=== PATIENT | female | born 1990 | race Caucasian/White ===

== ENCOUNTER → 2017-01-13 | Outpatient (CLI) | payer BC ==
[~2017-01-13] MED LIST: CLR10; MTR600X PO; OXYC-57 PO; PEDICHW50 PO
--- NOTE | 2017-01-13 08:03 | DIAGNOSTIC IMAGING REPORT ---
ABDOMEN AND PELVIS CT WITHOUT CONTRAST CT DOSE: 1436.32 mGy.cm HISTORY: Right flank pain. HEMATURIA TECHNIQUE: Multiaxial CT images of the abdomen and pelvis were performed without the use of intravenous and oral contrast according to the standard department stone protocol. COMPARISON STUDY: None. FINDINGS: 2 mm subpleural nodule within the right lower lobe on image 2. Linear density within the right middle lobe favors atelectasis or scarring. No fractures within the visualized osseous structures. The unenhanced liver, spleen, gallbladder, pancreas, adrenal glands, and kidneys are unremarkable. No renal stones or hydronephrosis. No retroperitoneal lymphadenopathy. Normal bladder. The intrauterine device is seen in the endometrial cavity. A 3 cm left ovarian cyst. Suboptimal evaluation for bowel pathology due to the lack of intravenous and oral contrast. However, there is no definite bowel wall thickening or obstruction. Normal appendix. IMPRESSION: 1. No renal stones or hydronephrosis. 2. No definite bowel wall thickening or obstruction. 3. Normal appendix. 4. A 3 cm left ovarian cyst. 5. A 2 mm subpleural nodule within the right lower lobe. This is of doubtful significance given the patient's age. Electronically signed by: Wale Cho M.D. 01/13/2017 8:01 AM Dictated Date/Time: 01/13/2017 7:55 AM
== END | disposition home or self-care (01) ==
LOC: C.CTS 07:39
PROVIDERS: ATTEND Internal Medicine
DX: R31.9 Hematuria, unspecified (principal); N83.202 Unspecified ovarian cyst, left side; R91.1 Solitary pulmonary nodule

== ENCOUNTER → 2017-08-03 | Outpatient (CLI) | payer OTHER ==
[2017-08-03 12:37] LABS: C-REACTIVE PROTEIN 0.8 mg/dl (0-0.29)
== END | disposition home or self-care (01) ==
LOC: C.LAB 11:34
PROVIDERS: ATTEND Nurse Practitioner Family
DX: K52.9 Noninfective gastroenteritis and colitis, unspecified (principal)

== ENCOUNTER → 2017-08-07 | Outpatient (CLI) | payer OTHER ==
[~2017-08-07] MED LIST changes: +SINCALIDE IV ONE; +SODIUM CHLORIDE 0.9% IV ONE
--- NOTE | 2017-08-07 10:27 | DIAGNOSTIC IMAGING REPORT ---
NUCLEAR MEDICINE HEPATOBILIARY SCAN WITH EJECTION FRACTION HISTORY: RUQ ABD PAIN,CHRONIC DIAHRREA COMPARISON: Abdomen and pelvis CT 01/13/2017. TECHNIQUE: Immediately following the intravenous administration of 5.5 mCi Tc-99m Choletec, dynamic anterior abdominal imaging pre/post 2.9 mcg of Kinevac was performed. FINDINGS: Uniform hepatic tracer accumulation is shown. Prompt intrahepatic biliary excretion is seen. The gallbladder, common bile duct, and small bowel are all visualized by 35 minutes. This appearance represents the normal sequence of biliary excretion. The gall bladder ejection fraction following administration of Kinevac was 88% (normal >35%). IMPRESSION: 1. No evidence for cystic duct obstruction. 2. Gallbladder ejection fraction calculated to be 88 %. Electronically signed by: Wale Cho M.D. 08/07/2017 10:26 AM Dictated Date/Time: 08/07/2017 10:25 AM
== END | disposition home or self-care (01) ==
LOC: C.NUCL 07:47
PROVIDERS: ATTEND Nurse Practitioner Family
DX: R10.11 Right upper quadrant pain (principal); K52.9 Noninfective gastroenteritis and colitis, unspecified

== ENCOUNTER 2017-10-11 15:51 | Emergency (ER) | payer OTHER ==
[~2017-10-11] VITALS: Ht 172.7 cm; Wt 142.7 kg
[~2017-10-11 15:51] MED LIST changes: -CLR10; +LEVO1IUD2; -MTR600X PO; -OXYC-57 PO; -PEDICHW50 PO; -SINCALIDE IV ONE; -SODIUM CHLORIDE 0.9% IV ONE; +TPRSR/50 PO
[2017-10-11] MEDS ORDERED: TRMCR130WC TOP (15:52)
[2017-10-11] MEDS ORDERED: SUMA50TA15 PO (15:52)
[2017-10-11 16:18] VITALS: TEMP 36.9; Ht 172.7 cm; Wt 142.7 kg
--- NOTE | 2017-10-11 16:44 | EMERGENCY ROOM VISIT NOTE ---
History First contact with patient: 16:23 Chief Complaint: LEG PAIN,LEG INJURY Stated Complaint: BLOOD CLOTS IN LEGS- [facility] REFERRED History of Present Illness The patient is a 26 year old female who presents to the Emergency Room with complaints of bilateral lower extremity swelling for the last several days. The patient also reports some numbness and tingling into her legs. She denies any back pain. No weakness. She reports getting winded yesterday when she was walking to her car. She denies any chest pain. No history of DVT. She did recently take a long car trip to [place]. The patient also smokes approximately one half pack cigarettes per day. She uses the Mirena for control. She denies any fever or chills. Review of Systems 10 system review performed and negative unless noted in HPI or below Past Medical/Surgical History Hypertension History of bronchitis Social History Smoking Status: Current Every Day Smoker Marital Status: Current/Historical Medications Scheduled Loratadine (Claritin), 10 MG PO DAILY Metoprolol Succinate (Metoprolol Succinate ER), 50 MG PO HS Scheduled PRN Sumatriptan Succinate (Imitrex), 50 MG PO UD PRN for Migraine Triamcinolone Acet (Aristocort 0.1%), 1 APPLN TOP UD PRN for Dermatitis Physical Exam Vital Signs Date Time Temp Pulse Resp B/P (MAP) Pulse Ox O2 Delivery O2 Flow Rate FiO2 10/11/17 18:41 75 18 155/98 97 Room Air 10/11/17 16:18 36.9 59 18 194/97 98 Room Air Physical Exam VITALS: Vitals are noted on the nurse's note and reviewed by myself. Vital signs stable. GENERAL: 26-year-old female, in no acute distress, nondiaphoretic, well- developed well-nourished. SKIN: Slight erythema noted to the shins bilaterally. No warmth appreciated. The skin is intact. HEAD: Normocephalic atraumatic. HEART: Regular rate and rhythm without murmurs gallops or rubs. LUNGS: Clear to auscultation bilaterally without wheezes, rales or rhonchi. No accessory muscle use. ABDOMEN: Positive bowel sounds x 4.Soft, nontender, without organomegaly. No guarding or rebound tenderness. MUSCULOSKELETAL: No edema in the lower extremities bilaterally. Mild erythema as noted above. Slight tenderness over the lateral aspect of the left calf. DP pulse +2. Capillary refills less than 2 seconds. Strength 5/5 throughout. NEURO: Patient was alert and oriented to person place and time. Normal sensation to touch. No focal neurological deficits. Medical Decision & Procedures ER Provider Diagnostic Interpretation: Lower extremity ultrasound IMPRESSION: No DVT within the right or left lower extremity. Electronically signed by: Wale Cho M.D. 10/11/2017 5:59 PM Dictated Date/Time: 10/11/2017 5:58 PM Laboratory Results 10/11/17 17:10 Red Blood Count 4.80, Mean Corpuscular Volume 89.8, Mean Corpuscular Hemoglobin 31.0, Mean Corpuscular Hemoglobin Concent 34.6, Mean Platelet Volume 11.0, Neutrophils (%) (Auto) 58.9, Lymphocytes (%) (Auto) 32.6, Monocytes (%) (Auto) 5.0, Eosinophils (%) (Auto) 3.1, Basophils (%) (Auto) 0.2, Neutrophils # (Auto) 5.20, Lymphocytes # (Auto) 2.88, Monocytes # (Auto) 0.44, Eosinophils # (Auto) 0.27, Basophils # (Auto) 0.02 10/11/17 17:10 Test 10/11/17 17:10 White Blood Count 8.83 K/uL (4.8-10.8) Red Blood Count 4.80 M/uL (4.2-5.4) Hemoglobin 14.9 g/dL (12.0-16.0) Hematocrit 43.1 % (37-47) Mean Corpuscular Volume 89.8 fL (80-100) Mean Corpuscular Hemoglobin 31.0 pg (25-34) Mean Corpuscular Hemoglobin Concent 34.6 g/dl (32-36) Platelet Count 185 K/uL (130-400) Mean Platelet Volume 11.0 fL (7.4-10.4) Neutrophils (%) (Auto) 58.9 % Lymphocytes (%) (Auto) 32.6 % Monocytes (%) (Auto) 5.0 % Eosinophils (%) (Auto) 3.1 % Basophils (%) (Auto) 0.2 % Neutrophils # (Auto) 5.20 K/uL (1.4-6.5) Lymphocytes # (Auto) 2.88 K/uL (1.2-3.4) Monocytes # (Auto) 0.44 K/uL (0.11-0.59) Eosinophils # (Auto) 0.27 K/uL (0-0.5) Basophils # (Auto) 0.02 K/uL (0-0.2) RDW Standard Deviation 44.5 fL (36.4-46.3) RDW Coefficient of Variation 13.5 % (11.5-14.5) Immature Granulocyte % (Auto) 0.2 % Immature Granulocyte # (Auto) 0.02 K/uL (0.00-0.02) Prothrombin Time 10.0 SECONDS (9.0-12.0) Prothromb Time International Ratio 1.0 (0.9-1.1) Activated Partial Thromboplast Time 29.4 SECONDS (21.0-31.0) Partial Thromboplastin Ratio 1.1 Anion Gap 6.0 mmol/L (3-11) Est Creatinine Clear Calc Drug Dose 159.1 ml/min Estimated GFR () 117.1 Estimated GFR (Non- 101.0 BUN/Creatinine Ratio 12.8 (10-20) Calcium Level 9.0 mg/dl (8.5-10.1) Total Bilirubin 0.3 mg/dl (0.2-1) Direct Bilirubin < 0.1 mg/dl (0-0.2) Aspartate Amino Transf (AST/SGOT) 14 U/L (15-37) Alanine Aminotransferase (ALT/SGPT) 17 U/L (12-78) Alkaline Phosphatase 84 U/L (45-117) Total Protein 7.4 gm/dl (6.4-8.2) Albumin 3.4 gm/dl (3.4-5.0) ED Course Patient was seen and examined Vital signs including blood pressure were reviewed medications list was verified with patient Labs were obtained, and a saline lock was established The patient declined pain medication Imaging was performed and reviewed Upon reassessment, the patient was resting comfortably in bed. We thoroughly discussed her results. She voiced understanding. I reviewed discharge instructions the patient. They voiced understanding and had no further questions. Medical Decision Differential diagnosis: DVT, fluid retention, renal failure, liver failure, cellulitis This patient is a 26-year-old female presents to emergency department complaining of swelling in her lower extremities. There was high risk of DVT given her history of smoking, contraception and recent travel. An ultrasound was performed. No DVTs were noted in the lower extremities bilaterally. No signs of renal or hepatic insufficiency. This is quite possibly dependent edema. She does not have any signs of infection. There is no leukocytosis. She is nontoxic in appearance. I believe she is stable to be discharged home. She was encouraged to elevate her legs above her heart and rest for this evening. She will also follow up closely with her primary care physician, and agrees to return here with any worsening symptoms. This chart was completed in part utilizing [employer] Speech Voice Recognition software. Attempts were made to minimize the grammatical errors, random word insertions, pronoun errors and incomplete sentences. Any formal questions or concerns about the content, text or information contained within the body of this dictation should be directly addressed to the provider for clarification. Medication Reconcilliation Current Medication List: was personally reviewed by me Blood Pressure Screening Patient's blood pressure: Elevated blood pressure Blood pressure disposition: Referred to PCP Impression Primary Impression: Leg edema Departure Information Dispostion Home / Self-Care Condition GOOD Referrals Karolina Garza PA-C (PCP) Patient Instructions My [facility] Additional Instructions You were evaluated in the emergency department for leg swelling. There were no signs of blood clot on the ultrasound. Please elevate your legs above your heart for this evening. Get plenty of rest. Please follow-up with your primary care physician as scheduled tomorrow morning Of note, your blood pressure was elevated in the emergency department. Please have this rechecked tomorrow also. Please do not hesitate to return to the emergency department with any new, worsening or concerning symptoms; especially, fever, increased swelling, chest pain or difficulty breathing It was a pleasure participating in your care Work Instructions Return To Work: 1 day
[2017-10-11 17:17] LABS: BASO % 0.2 %; BASO ABS # 0.02 K/uL (0-0.2); EOS % 3.1 %; EOS ABS # 0.27 K/uL (0-0.5); HEMATOCRIT 43.1 % (37-47); HEMOGLOBIN 14.9 g/dL (12.0-16.0); IG# 0.02 K/uL (0.00-0.02); LYMPH % 32.6 %; LYMPH ABS # 2.88 K/uL (1.2-3.4); MEAN CELL VOLUME 89.8 fL (80-100); MEAN CORPUSCULAR HGB CONC 34.6 g/dl (32-36); MONO ABS # 0.44 K/uL (0.11-0.59); NEUT % 58.9 %; PLATELET COUNT 185 K/uL (130-400); RED CELL DISTRIBUTION WIDTH CV 13.5 % (11.5-14.5); RED CELL DISTRIBUTION WIDTH SD 44.5 fL (36.4-46.3); WHITE BLOOD COUNT 8.83 K/uL (4.8-10.8)
[2017-10-11 17:34] LABS: BLOOD UREA NITROGEN 10 mg/dl (7-18); CARBON DIOXIDE 26 mmol/L (21-32); GLUCOSE 107 mg/dl (70-99); SODIUM 139 mmol/L (136-145)
[2017-10-11 17:38] LABS: ALBUMIN 3.4 gm/dl (3.4-5.0); ALKALINE PHOSPHATASE 84 U/L (45-117); ALT/SGPT 17 U/L (12-78); AST/SGOT 14 U/L (15-37); TOTAL PROTEIN 7.4 gm/dl (6.4-8.2)
[2017-10-11 17:43] LABS: PTT PATIENT 29.4 SECONDS (21.0-31.0)
--- NOTE | 2017-10-11 18:00 | DIAGNOSTIC IMAGING REPORT ---
BILATERAL LOWER EXTREMITY VENOUS DOPPLER HISTORY: bilateral leg edema high risk for DVT COMPARISON STUDY: None. FINDINGS: There is normal compressibility, flow, and augmentation within the bilateral lower extremity deep venous systems. IMPRESSION: No DVT within the right or left lower extremity. Electronically signed by: Wale Cho M.D. 10/11/2017 5:59 PM Dictated Date/Time: 10/11/2017 5:58 PM
[2017-10-11 18:41] VITALS: BP 155/98; PULSE 75; O2SAT 97
[2017-10-11] MEDS ORDERED: CLR10 PO (22:28)
== END 2017-10-11 18:57 | disposition home or self-care (01) ==
LOC: C.EDB 15:52 → C.EDD 18:57
DX: R60.0 Localized edema (principal); I10 Essential (primary) hypertension; F17.210 Nicotine dependence, cigarettes, uncomplicated; Z79.899 Other long term (current) drug therapy

== ENCOUNTER 2017-11-03 08:19 | Day surgery (SDC) | payer OTHER ==
[2017-09-28 15:25] VITALS: Ht 175.3 cm; Wt 140.0 kg
[~2017-11-03] VITALS: Ht 175.3 cm; Wt 140.0 kg
[~2017-11-03 08:19] MED LIST changes: +CLR10 PO; +LACTATED RINGER'S 1000ML 1,000 ML IV SCH; -LEVO1IUD2; +SUMA50TA15 PO; +TRMCR130WC TOP
[2017-11-03 08:50] VITALS: BP 162/90; PULSE 76; TEMP 37.1; O2SAT 96
[2017-11-03] MEDS ORDERED: FENTANYL CITRATE INJ 50 MCG/1 ML 2 ML VIAL ONE (09:37)
[2017-11-03] MEDS ORDERED: MIDAZOLAM HCL 1 MG/ML 2ML VIAL ONE (09:37)
--- NOTE | 2017-11-03 10:11 | Endo History and Physical ---
History & Physical Date of Service: Nov 03, 2017. Chief Complaint: Abdominal pain / difficulty swallowing Referring Physician: Ms. Olu vang History of Present Illness Patient referred for an Upper endoscopy and EUS to evaluate a history abdominal pain and intermitant difficulty with swallowing. Past Surgical History Hx Cardiac Surgery: No Hx Abdominal Surgery: Yes ( ) Hx Post-Op Nausea and Vomiting: No (NOT WITH , PT NOT SURE ABOUT OTHER TIMES ) Hx Cancer Surgery: No Hx Thoracic Surgery: No Hx Orthopedic: No Hx Urinary Tract Surgery: No Social History Smoking Status: Current Every Day Smoker Hx Substance Use: No Hx Alcohol Use: No Allergies Coded Allergies: Penicillins (Verified Allergy, Intermediate, HIVES, 11/03/17) Unclassified Drugs (Verified Allergy, Unknown, ENVIRONMENTAL ALLERGIES & METAL ALLERGY (SEE NOTES BELOW), 11/03/17) ITCHING IS ONLY REACTION (ENVIRONMENTAL) METAL ALLERGY (PT NOT SURE WHAT METALS SHE REACTS TO - REACTION IS CONTACT DERMATITIS, PT WAS SEEN BY AN ELECTRIC POWER MACHINE OPERATOR WHO REPORTED CONTACT DERMATITIS THE REACTION BUT ELECTRIC POWER MACHINE OPERATOR WOULD NOT DO FURTHER TESTING PER PT REPORT) Dust (Verified Adverse Reaction, Mild, rash, 11/03/17) Ondansetron (Verified Adverse Reaction, Unknown, SEVERLY CONSTIPATED, 11/03) Current Medications Reported Home Medications Medications Dose Route/Sig Max Daily Dose Days Date Category Dose Instructions Aristocort 0.1% (Triamcinolone Acet) 90 Appln/30 Gm Cr 1 Appln TOP UD PRN 09/28/17 Reported APPLY DIRECTED TO AFFECTED AREA(S) Imitrex (Sumatriptan Succinate) 50 Mg Tab 50 Mg PO UD PRN 09/28/17 Reported Metoprolol Succinate ER (Metoprolol Succinate) 50 Mg Tabcr 50 Mg PO HS 09/28/17 Reported Claritin (Loratadine) 10 Mg Tab 10 Mg PO DAILY 07/14/06 Reported Vital Signs Weight (Kilograms): 140.00 Height (Feet): 5 Height (Inches): 9 Date Time Temp Pulse Resp B/P (MAP) Pulse Ox O2 Delivery O2 Flow Rate FiO2 11/03/17 08:50 37.1 76 20 162/90 (114) 96 Room Air Physical Exam General Appearance: no apparent distress Respiratory/Chest: Auscultation: breath sounds normal Cardiovascular: Heart Auscultation: RRR Abdomen: Inspection & Palpation: soft Assessment and Plan Evaluation for abdominal pian, nausea and difficulty swallowing. We have discussed the risks to include bleeding, infection, perforation, pain, pancreatitis and need for follow-up studies.
[2017-11-03] MEDS ORDERED: DEXAMETHASONE SOD INJ 4 MG/ML VIAL ONE (10:34)
[2017-11-03] MEDS ORDERED: SUCCINYLCHOLINE CHLORIDE 20 MG/ML 10 ML VIAL IV ONE (10:34)
[2017-11-03] MEDS ORDERED: ONDANSETRON INJ 2 MG/ML 2 ML VIAL ONE (10:34)
[2017-11-03] MEDS ORDERED: LIDOCAINE HCL 2% 2 ML VIAL (20MG/ML) ONE (10:34)
[2017-11-03] MEDS ORDERED: ROCURONIUM BROMIDE 10 MG/ML 5 ML VIAL IV ONE (10:34)
[2017-11-03] MEDS ORDERED: PROPOFOL IV EMULSION 10 MG/ML 20 ML VIAL IV ONE (10:34)
--- NOTE | 2017-11-03 10:38 | GI REPORT ---
Procedure Date: 11/03/2017 10:25 AM Procedure: Upper GI endoscopy Indications: Epigastric abdominal pain, Dysphagia Medicines: General Anesthesia Complications: No immediate complications. Estimated blood loss: Minimal. Estimated Blood Loss: Estimated blood loss was minimal. Procedure: Pre-Anesthesia Assessment: - Prior to the procedure, a History and Physical was performed, and patient medications, allergies and sensitivities were reviewed. The patient's tolerance of previous anesthesia was reviewed. - The risks and benefits of the procedure and the sedation options and risks were discussed with the patient. All questions were answered and informed consent was obtained. - Patient identification and proposed procedure were verified prior to the procedure by the physician, the nurse and the crusher and binder operator. The procedure was verified in the procedure room. - Pre-procedure physical examination revealed no contraindications to sedation. - ASA Grade Assessment: II - A patient with mild systemic disease. - After reviewing the risks and benefits, the patient was deemed in satisfactory condition to undergo the procedure. - The anesthesia plan was to use general anesthesia. - Immediately prior to administration of medications, the patient was re-assessed for adequacy to receive sedatives. - The heart rate, respiratory rate, oxygen saturations, blood pressure, adequacy of pulmonary ventilation, and response to care were monitored throughout the procedure. - The physical status of the patient was re-assessed after the procedure. After obtaining informed consent, the endoscope was passed under direct vision. Throughout the procedure, the patient's blood pressure, pulse, and oxygen saturations were monitored continuously. The scope was introduced through the mouth, and advanced to the second part of duodenum. The upper GI endoscopy was accomplished without difficulty. The patient tolerated the procedure well. Findings: No endoscopic abnormality was evident in the esophagus to explain the patient's complaint of dysphagia. It was decided, however, to proceed with dilation of the entire esophagus. A guidewire was placed and the scope was withdrawn. Dilation was performed with a Savary dilator with no resistance at 54 Fr. The endoscope was then reinserted to evaluate the success of the procedure. Estimated blood loss: none. The Z-line was regular and was found 37 cm from the incisors. The cardia, gastric fundus and gastric body were normal. Patchy mild inflammation characterized by erythema and granularity was found in the gastric antrum. Biopsies were taken with a cold forceps for histology. Estimated blood loss was minimal. The examined duodenum was normal. Biopsies for histology were taken with a cold forceps for evaluation of celiac disease. Estimated blood loss was minimal. Impression: - No endoscopic esophageal abnormality to explain patient's dysphagia. Esophagus dilated. Dilated. - Z-line regular, 37 cm from the incisors. - Normal cardia, gastric fundus and gastric body. - Gastritis. Biopsied. - Normal examined duodenum. Biopsied. Recommendation: - Perform an upper endoscopic ultrasound (UEUS) today. - Await pathology results. - Use Protonix (pantoprazole) 40 mg PO daily for 12 weeks. Ana Quiroz D.O. Ana Quiroz, 11/03/2017 10:38:07 AM This report has been signed electronically. Note Initiated On: 11/03/2017 10:25 AM I attest to the content of the Intraoperative Record and orders documented therein, exceptions below
[2017-11-03] MEDS ORDERED: GLYCOPYRROLATE INJ 0.2 MG/ML VIAL ONE (10:49)
--- NOTE | 2017-11-03 10:59 | GI REPORT ---
Procedure Date: 11/03/2017 10:38 AM Procedure: Upper EUS Indications: Suspected choledocholithiasis, Epigastric abdominal pain, Abdominal pain in the right upper quadrant Medicines: General Anesthesia Complications: No immediate complications. Estimated blood loss: Minimal. Estimated Blood Loss: Estimated blood loss was minimal. Procedure: Pre-Anesthesia Assessment: - Prior to the procedure, a History and Physical was performed, and patient medications, allergies and sensitivities were reviewed. The patient's tolerance of previous anesthesia was reviewed. - The risks and benefits of the procedure and the sedation options and risks were discussed with the patient. All questions were answered and informed consent was obtained. - Patient identification and proposed procedure were verified prior to the procedure by the physician, the nurse and the occupational therapy asst. The procedure was verified in the procedure room. - Pre-procedure physical examination revealed no contraindications to sedation. - ASA Grade Assessment: II - A patient with mild systemic disease. - After reviewing the risks and benefits, the patient was deemed in satisfactory condition to undergo the procedure. - The anesthesia plan was to use general anesthesia. - Immediately prior to administration of medications, the patient was re-assessed for adequacy to receive sedatives. - The heart rate, respiratory rate, oxygen saturations, blood pressure, adequacy of pulmonary ventilation, and response to care were monitored throughout the procedure. - The physical status of the patient was re-assessed after the procedure. After obtaining informed consent, the endoscope was passed under direct vision. Throughout the procedure, the patient's blood pressure, pulse, and oxygen saturations were monitored continuously. The Endosonoscope was introduced through the mouth, and advanced to the second part of duodenum. The upper EUS was accomplished without difficulty. The patient tolerated the procedure well. Findings: Endosonographic Finding : There was no sign of significant endosonographic abnormality in the ampulla. No masses were identified. There was no sign of significant endosonographic abnormality in the common bile duct. The maximum diameter of the duct was 4 mm. No stones and no biliary sludge were identified. Moderate hyperechoic material consistent with sludge was visualized endosonographically in the gallbladder. The gallbladder wall was 1 mm in thickness. There was no sign of significant endosonographic abnormality in the visualized portion of the liver. Homogeneous parenchyma and no focal pathology were identified. There was no sign of significant endosonographic abnormality in the entire pancreas. The pancreatic duct measured up to 2.4 mm in diameter in the head and 1.3 mm in the body (normal). No masses, no cysts, the pancreatic duct was thin in caliber. No lymphadenopathy seen. There was no sign of significant endosonographic abnormality in the left adrenal gland. No adrenal gland enlargement was identified. Impression: - Normal ampulla. - 4 mm common bile duct. - Hyperechoic material consistent with sludge was visualized endosonographically in the gallbladder. - Visualized portions of liver were normal. - Normal pancreas. - Endosonographic images of the left adrenal gland were unremarkable. - No specimens collected. Recommendation: - Patient has a contact number available for emergencies. The signs and symptoms of potential delayed complications were discussed with the patient. Return to normal activities tomorrow. Written discharge instructions were provided to the patient. - Advance diet as tolerated today. - Refer to a surgeon at appointment to be scheduled. Ana Quiroz D.O. Ana Quiroz, 11/03/2017 10:59:17 AM This report has been signed electronically. Note Initiated On: 11/03/2017 10:38 AM I attest to the content of the Intraoperative Record and orders documented therein, exceptions below
--- NOTE | 2017-11-03 11:00 | [facility] Post Operative Brief Note ---
Immediate Operative Summary Operative Date Nov 03, 2017. Pre-Operative Diagnosis Nausea, Dysphagia Post-Operative Diagnosis Gastritis, Gallbladder Sludge Procedure(s) Performed Upper Endoscopic Ultrasonography with Esophagogastroduodenoscopy with esophageal dilation and gastic biopsy Surgeon Dr. Ana Quiroz Commercial [employer] Insurance Agent Surgeon(s) none Estimated Blood Loss 0mL Findings Consistent with Post-Op Diagnosis Specimens 1) Duodenum 2) gastric antrum Anesthesia Type General Complication(s) none Disposition Accompanied Pt To Recover: no Disposition: Recovery Room / PACU
--- NOTE | 2017-11-03 11:03 | Discharge Instructions ---
Endoscopy Patient Instructions Date / Procedure(s) Performed Nov 03, 2017. EGD, Other (Endoscopic ultrasound) Allergy Information Coded Allergies: Penicillins (Verified Allergy, Intermediate, HIVES, 11/03/17) Unclassified Drugs (Verified Allergy, Unknown, ENVIRONMENTAL ALLERGIES & METAL ALLERGY (SEE NOTES BELOW), 11/03/17) ITCHING IS ONLY REACTION (ENVIRONMENTAL) METAL ALLERGY (PT NOT SURE WHAT METALS SHE REACTS TO - REACTION IS CONTACT DERMATITIS, PT WAS SEEN BY AN GRAPPLE CREW LEADER WHO REPORTED CONTACT DERMATITIS THE REACTION BUT GRAPPLE CREW LEADER WOULD NOT DO FURTHER TESTING PER PT REPORT) Dust (Verified Adverse Reaction, Mild, rash, 11/03/17) Ondansetron (Verified Adverse Reaction, Unknown, SEVERLY CONSTIPATED, 11/03) Discharge Date / Findings Nov 03, 2017. Mild gastritis Normal esophagus Sludge in the gallbaldder Medication Instructions Reported Home Medications Medications Dose Route/Sig Max Daily Dose Days Date Category Dose Instructions Aristocort 0.1% (Triamcinolone Acet) 90 Appln/30 Gm Cr 1 Appln TOP UD PRN 09/28/17 Reported APPLY DIRECTED TO AFFECTED AREA(S) Imitrex (Sumatriptan Succinate) 50 Mg Tab 50 Mg PO UD PRN 09/28/17 Reported Metoprolol Succinate ER (Metoprolol Succinate) 50 Mg Tabcr 50 Mg PO HS 09/28/17 Reported Claritin (Loratadine) 10 Mg Tab 10 Mg PO DAILY 07/14/06 Reported Provider Instructions Activity Restrictions - No exercising or heavy lifting for 24 hours. - Do not drink alcohol the day of the procedure. - Do not drive a car or operate machinery until the day after the procedure. - Do not make any important decisions or sign important papers in 24 hours after the procedure. Following Day: - Return to full activity which may include returning to work/school. Diet Start your diet with liquids and light foods (jello, soup, juice, toast). Then eat your usual diet if not nauseated. Treatment For Common After Affects For mild abdominal pain, bloating, or excessive gas: - Rest - Eat lightly - Lie on right side Follow-Up Information Follow-up with Ms. Felder in 4 to 6 months Protonix 40 mg per day General surgery referral to discuss gallbladder surgery Anesthesia Information What You Should Know You have had a procedure that required some medicine to reduce anxiety and discomfort. This treatment is called moderate sedation. After receiving the treatment, you may be sleepy, but you will be able to breathe on your own. The effects of the treatment may last for several hours. Follow these instructions along with Activity/Diet recommendations noted above: * Do NOT do anything where dizziness or clumsiness would be dangerous. * Rest quietly at home today, then you can be up and about tomorrow. * Have a responsible person stay with you the rest of today. * You may have had an I.V. today. If so, you may take the dressing off later today. Recommendations Call your doctor if: * Trouble breathing * Continuous vomiting for more than 24 hours * Temperature above 101 degrees * Severe abdominal pain or bloating * Pain not relieved by pain medicine ordered * There is increased drainage or redness from any incision * A large amount of rectal bleeding greater than 2-3 tablespoons. (If you had a polyp/s removed or have hemorrhoids, a small amount of blood - from the rectum is to be expected.) * You have any unanswered questions or concerns. IN THE EVENT OF A SERIOUS EMERGENCY, GO TO THE NEAREST EMERGENCY ROOM Your discharge instructions were prepared by provider Ana Quiroz. Patient Instructions Signature Page Adina Dominguez Patient (or Guardian) Signature/Date: I have read and understand the instructions given to me by my caregivers. Caregiver/RN/Doctor Signature/Date: The above-named patient and/or guardian has received patient instructions on this date. + Original Patient Signature Page (only) stays with chart. Please make copy for patient.
[2017-11-03] MEDS ORDERED: FENTANYL CITRATE INJ 50 MCG/1 ML 2 ML VIAL IV PRN (11:15)
[2017-11-03] MEDS ORDERED: PROMETHAZINE HCL INJ 6.25 MG in SODIUM CHLORIDE 0.9% 50ML 50 ML IV PRN (11:15)
[2017-11-03] MEDS ORDERED: EpHEDrine SULFATE INJ 50 MG/ML AMP IV PRN (11:15)
[2017-11-03] MEDS ORDERED: ATROPINE SULFATE 0.1 MG/ML 5ML SYR IV PRN (11:15)
[2017-11-03 11:50] VITALS: BP 129/55; PULSE 54; TEMP 36.5; O2SAT 93
[2017-11-03 12:22] VITALS: BP 119/72; PULSE 61; TEMP 36.6; O2SAT 94
--- NOTE | 2017-11-03 12:44 | Anesthesiology Progress Note ---
Anesthesia Post Op Note Date & Time Nov 03, 2017 at 12:44 Vital Signs Pain Intensity: 0 Vital Signs Past 12 Hours Date Time Temp Pulse Resp B/P (MAP) Pulse Ox O2 Delivery O2 Flow Rate FiO2 11/03/17 11:50 36.5 54 18 129/55 93 Room Air 11/03/17 11:43 36.8 11/03/17 11:42 45 16 11/03/17 11:42 46 16 96 11/03/17 11:41 112/60 11/03/17 11:37 43 16 97 11/03/17 11:37 44 16 11/03/17 11:36 105/58 11/03/17 11:32 45 16 98 11/03/17 11:32 47 16 11/03/17 11:31 120/53 11/03/17 11:27 58 20 11/03/17 11:27 59 20 93 11/03/17 11:26 114/66 11/03/17 11:22 52 16 11/03/17 11:22 50 16 98 11/03/17 11:21 113/62 11/03/17 11:17 65 18 97 11/03/17 11:17 61 18 11/03/17 11:16 110/67 11/03/17 11:15 60 19 97 11/03/17 11:15 63 19 11/03/17 11:11 120/69 11/03/17 11:10 63 21 96 11/03/17 11:10 62 21 11/03/17 11:06 102/67 11/03/17 11:05 36.8 88 16 102/67 97 Oxymask 10 11/03/17 11:05 100 18 11/03/17 11:05 95 18 92 11/03/17 08:50 37.1 76 20 162/90 (114) 96 Room Air Notes Mental Status: alert / awake / arousable, participated in evaluation Pt Amnestic to Procedure: Yes Nausea / Vomiting: adequately controlled Pain: adequately controlled Airway Patency, RR, SpO2: stable & adequate BP & HR: stable & adequate Hydration State: stable & adequate Anesthetic Complications: no major complications apparent
== END 2017-11-03 12:33 | disposition home or self-care (01) ==
LOC: C.ACU 08:19
PROVIDERS: ATTEND Internal Medicine Gastroenterology
DX: K29.50 Unspecified chronic gastritis without bleeding (principal); R13.10 Dysphagia, unspecified; E66.9 Obesity, unspecified; Z87.891 Personal history of nicotine dependence; Z88.0 Allergy status to penicillin; Z98.890 Other specified postprocedural states; Z68.42 Body mass index [BMI] 45.0-49.9, adult

== ENCOUNTER → 2017-12-25 | Day surgery (SDC) | payer OTHER ==
[2017-12-14 15:21] VITALS: BMI 46.0
[~2017-12-25] VITALS: Ht 172.7 cm; Wt 138.6 kg
[~2017-12-25] MED LIST changes: +AMT50 PO; +ATROPINE SULFATE 0.1 MG/ML 5ML SYR IV PRN; +BUPIVACAINE 0.5 % 5 MG/1 ML MPF 30ML VIAL ONE; +CEFAZOLIN SOD 1 GM VIAL ONE; +CLINDAMYCIN IV 900 MG in DEXTROSE 5% 50ML 44 ML IV SCH; +DiphenhydrAMINE HCL 50 MG/ML VIAL ONE; +FENTANYL CITRATE INJ 50 MCG/1 ML 2 ML VIAL ONE; +GLYCOPYRROLATE INJ 0.2 MG/ML VIAL ONE; +HEPARIN SOD (PORCINE) 1000 UNIT/ML 10 ML VIAL ONE; +KETOROLAC TROMETHAMINE 30 MG/ML VIAL IV. PRN; +LABETALOL HCL IV 5 MG/ML 20ML ONE; +LIDOCAINE HCL 2% 2 ML VIAL (20MG/ML) ONE; +METOCLOPRAMIDE HCL INJ 5 MG/ML 2 ML VIAL ONE; +MIDAZOLAM HCL 1 MG/ML 2ML VIAL ONE; +MoRPHine SULFATE 4 MG/ML 1 ML CARP\\VIAL IV PRN; +NEOSTIGMINE METHYLSULFATE 5 MG/5 ML SYR ONE; +ONDANSETRON INJ 2 MG/ML 2 ML VIAL ONE; +OXYCODONE/ACETAMINOPHEN 5-325 TAB PO PRN; +PANT40TA PO; +PROMETHAZINE HCL INJ 12.5 MG in SODIUM CHLORIDE 0.9% 50ML 50 ML IV PRN; +PROPOFOL IV EMULSION 10 MG/ML 20 ML VIAL ONE; +RANITIDINE HCL 25 MG/ML INJ ONE; +ROCURONIUM BROMIDE 10 MG/ML 5 ML VIAL ONE; +SCOPOLAMINE 1.5 MG TDSY TD ONE; +SODIUM CHLORIDE 0.9% 1000ML 1,000 ML IV SCH; -TPRSR/50 PO
[2017-12-25 10:39] VITALS: BP 143/72; PULSE 59; TEMP 37; O2SAT 97; Ht 172.7 cm; Wt 138.6 kg
--- NOTE | 2017-12-25 10:44 | History & Physical Bridge Note ---
H&P Re-Evaluation Bridge Note: I have examined the patient, reviewed the History & Physical and in the interval since the performance of the History & Physical I have noted the following changes of clinical significance: No changes noted
--- NOTE | 2017-12-25 14:38 | [facility] Post Operative Brief Note ---
Immediate Operative Summary Operative Date December 25, 2017. Pre-Operative Diagnosis 1. Sludge in Gallbladder 2. Abdominal pain, right upper quadrant Post-Operative Diagnosis Same Procedure(s) Performed Laparoscopic Cholecystectomy Surgeon Dr. Sudeep Lockett Instructional Specialist Surgeon(s) Harika King PA-C Estimated Blood Loss 6mL Findings Consistent with Post-Op Diagnosis Specimens Permanent: A. Gallbladder and contents Drains None Anesthesia Type General Complication(s) none Disposition Disposition: Recovery Room / PACU
--- NOTE | 2017-12-25 14:42 | Discharge Instructions ---
Discharge Instructions Date of Service December 25, 2017. Admission Reason for Admission: Sludge In Gallbladder Discharge Discharge Diagnosis / Problem: Same Discharge Goals Goal(s): Decrease discomfort Activity Recommendations Activity Limitations: per Instructions/Follow-up section Lifting Limitations: no more than 10 pounds (for 2 wweks) Shower/Bathe: tomorrow (shower only) . Instructions / Follow-Up Instructions / Follow-Up Post-Surgical ~ Discharge Instructions Activity Recommendations: - lifting limitation: (10 pounds for 2 weeks), - exercise/sex/sports limit: (nonstrenuous for 2 weeks), - driving or machine use limit: (none for 1 week), - Shower/bathe limit: (may shower beginning tomorrow) Diet: - Resume previous diet SPECIAL CARE INSTRUCTIONS: - May shower in 24 hours. Let water run over area and pat dry. - Leave steri strips on for one week. - Call the surgeon's office with any questions or concerns - - (ex. temperature higher than 101 degrees F, excessive bleeding or pain). MEDICATIONS: - Resume previous medications unless instructed otherwise by your surgeon. - Ibuprofen 600 mg every 6 hours with food - Percocet 1 every 4 hours, as needed for pain FOLLOW UP VISIT: - If not already scheduled, please call the office to schedule a two week follow-up appointment. Office number Current Hospital Diet Patient's current hospital diet: Discharge Diet Recommended Diet: Regular Diet Procedures Procedures Performed: Laparoscopic Cholecystectomy Pending Studies Studies pending at discharge: yes List of pending studies: Pathology Medical Emergencies . Who to Call and When: Medical Emergencies: If at any time you feel your situation is an emergency, please call 911 immediately. . Non-Emergent Contact Non-Emergency issues call your: Primary Care Provider, Surgeon Call Non-Emergent contact if: your pain is worsening, wound has increased redness, wound has increased pain . "Provider Documentation" section prepared by Sudeep Lockett. .
[2017-12-25] MEDS: FENTANYL CITRATE INJ 50 MCG/1 ML 2 ML VIAL IV PRN ×2 (15:05→15:12)
--- NOTE | 2017-12-25 15:25 | OPERATIVE REPORT ---
DATE OF OPERATION: 12/25/2017 PREOPERATIVE DIAGNOSIS: Gallbladder sludge. POSTOPERATIVE DIAGNOSIS: Same. PROCEDURE: Laparoscopic cholecystectomy. SURGEON: Sudeep Lockett MD PICKER TENDER HELPER: Harika King PA-C FINDINGS: The gallbladder was not dilated. There was no thickening of the wall. The cystic duct was short, measuring approximately only about 1.5 cm. The common duct did not appear to be dilated. The liver was of normal size and contour. There were some adhesions of the omentum to the undersurface of the right lobe of the liver. TECHNIQUE: The patient was given a general anesthetic and the area was prepped and draped in usual sterile fashion. Transverse incision was made below the umbilicus, carried down through the subcutaneous tissue to the fascia which was grasped with 2 Valentín clamps and incised between. The peritoneum was identified, incised, and the introducer was placed bluntly. The abdomen was then insufflated to a pressure of 15 mmHg with carbon dioxide. The upper midline, midclavicular and anterior axillary introducers were placed under direct vision through small skin incisions. Traction was placed on the gallbladder and adhesions to the undersurface of the liver were taken down using sharp and cautery dissection where appropriate to avoid tearing the capsule with elevation of the gallbladder. I then was able to open the peritoneum on the lateral side of the gallbladder, peeled down towards the common bile duct and dissect the infundibulum away from the liver on that lateral side allowing for better mobility. I then opened the peritoneum on the anterior surface of the infundibulum, peeled it down towards the common bile duct and entered the triangle of Calot, dissecting the connective tissue and lymphatics towards the common bile duct and the infundibulum away from the liver on the medial side. There was additional fatty tissue in the anterior surface of the cystic duct which was peeled down towards the common bile duct and the common bile duct was readily visible. I then placed traction on the infundibulum laterally and inferiorly and dissected a plane between the cystic duct and some thickened lymphatics posteriorly confirming the cystic duct gallbladder junction, also confirming the fact that the cystic duct was short. In order to confirm the anatomy, the infundibulum in the lower body was then dissected away from the liver laterally, medially and behind the cystic duct in order to be able to have a good window and that was accomplished. That allowed me to confidently identify the cystic duct gallbladder junction. Two clips were placed on the proximal cystic duct, making sure not to impinge on the wall of the common bile duct and a clip was placed near the gallbladder cystic duct junction and the cystic duct was divided. Further dissection was carried out posterior to that. There were 3 tubular structures that were identified, then I thought were either large lymphatics or small branch of the artery as the artery was not prominent. These were clamped, divided. The gallbladder was peeled off the liver bed. Another 1-2 mm structure in the center of the gallbladder bed of the liver near the body was encountered and this was clamped as well. Completion of the dissection of the gallbladder away from the liver was performed. It was placed into an Endobag and brought through the upper midline incision where I had to open the gallbladder and remove the bile in order to extract it, but I was able to be accomplished. That introducer was replaced and liver edge was elevated. The gallbladder bed was inspected. No bleeding. The previously placed clips were inspected and there was no bleeding. The subdiaphragmatic and subhepatic spaces were irrigated and irrigation removed. The gallbladder bed was again inspected and there was no bleeding. The liver was allowed to fall back into its anatomic position. The gas was allowed to escape and the introducers were removed. The fascia of the upper midline and umbilical introducer site was closed with interrupted 0 Vicryl, and the skin of all incisions closed with 4-0 Monocryl in either an interrupted or running subcuticular fashion. The skin was anesthetized with 0.5% Marcaine. The skin was cleansed, dried, benzoin placed and Steri-Strips applied. Estimated blood loss was 6 mL. Sponge, needle and instrument counts were correct x2 prior to closure. The patient tolerated the surgical procedure without complication and was transferred to recovery. I attest to the content of the Intraoperative Record and any orders documented therein. Any exception s are noted below.
--- NOTE | 2017-12-25 15:30 | Anesthesia Procedure Note ---
Anesthesia Epidural Removal Nt Date & Time December 25, 2017 at 15:29 Vital Signs Pain Intensity: 5 Vital Signs Past 12 Hours Date Time Temp Pulse Resp B/P (MAP) Pulse Ox O2 Delivery O2 Flow Rate FiO2 12/25/17 15:25 53 13 12/25/17 15:25 52 13 96 12/25/17 15:21 164/83 12/25/17 15:20 59 17 96 12/25/17 15:20 57 17 12/25/17 15:16 149/84 12/25/17 15:15 51 17 12/25/17 15:15 52 17 100 12/25/17 15:14 55 16 12/25/17 15:14 55 16 100 12/25/17 15:11 157/81 12/25/17 15:09 50 12 100 12/25/17 15:09 50 12 12/25/17 15:06 156/85 12/25/17 15:04 52 16 12/25/17 15:04 52 16 100 12/25/17 15:01 150/103 12/25/17 14:59 56 16 98 12/25/17 14:59 57 16 12/25/17 14:56 147/77 12/25/17 14:54 16 12/25/17 14:54 16 149/83 12/25/17 14:54 37.2 62 18 149/83 100 Oxymask 10 12/25/17 10:39 37 59 18 143/72 (95) 97 Room Air Notes Mental Status: alert / awake / arousable, participated in evaluation Nausea / Vomiting: adequately controlled Pain: adequately controlled Airway Patency, RR, SpO2: stable & adequate BP & HR: stable & adequate Hydration State: stable & adequate Neuraxial Anesthesia: was administered Anesthetic Complications: no major complications apparent, pt satisfied with anesthetic care Epidural: removed without complications, with tip intact Notes: The post-epidural note was accidentally clicked as I was clicking on the post- op note.
--- NOTE | 2017-12-25 15:35 | Anesthesiology Progress Note ---
Anesthesia Post Op Note Date & Time December 25, 2017 at 15:35 Vital Signs Pain Intensity: 4 Vital Signs Past 12 Hours Date Time Temp Pulse Resp B/P (MAP) Pulse Ox O2 Delivery O2 Flow Rate FiO2 12/25/17 15:25 53 13 12/25/17 15:25 52 13 96 12/25/17 15:21 164/83 12/25/17 15:20 59 17 96 12/25/17 15:20 57 17 12/25/17 15:16 149/84 12/25/17 15:15 51 17 12/25/17 15:15 52 17 100 12/25/17 15:14 55 16 12/25/17 15:14 55 16 100 12/25/17 15:11 157/81 12/25/17 15:09 50 12 100 12/25/17 15:09 50 12 12/25/17 15:06 156/85 12/25/17 15:04 52 16 12/25/17 15:04 52 16 100 12/25/17 15:01 150/103 12/25/17 14:59 56 16 98 12/25/17 14:59 57 16 12/25/17 14:56 147/77 12/25/17 14:54 16 12/25/17 14:54 16 149/83 12/25/17 14:54 37.2 62 18 149/83 100 Oxymask 10 12/25/17 10:39 37 59 18 143/72 (95) 97 Room Air Notes Mental Status: alert / awake / arousable, participated in evaluation Pt Amnestic to Procedure: Yes Nausea / Vomiting: adequately controlled Pain: adequately controlled Airway Patency, RR, SpO2: stable & adequate BP & HR: stable & adequate Hydration State: stable & adequate Anesthetic Complications: no major complications apparent
[2017-12-25 15:43] VITALS: BP 140/82; PULSE 62; TEMP 36.8; O2SAT 92
[2017-12-25 16:13] VITALS: BP 127/80; PULSE 47; TEMP 36.8; O2SAT 95
== END | disposition home or self-care (01) ==
LOC: C.ACU 10:14
PROVIDERS: ATTEND Surgery
DX: K81.9 Cholecystitis, unspecified (principal); K82.8 Other specified diseases of gallbladder; R10.11 Right upper quadrant pain; E66.9 Obesity, unspecified; Z88.0 Allergy status to penicillin; Z87.891 Personal history of nicotine dependence